=== PATIENT | female | born 1935 | race Caucasian/White ===

== ENCOUNTER 2016-12-06 08:04 | Day surgery (SDC) | payer MEDICARE, OTHER ==
--- NOTE | ~2016-12-06 | EGD ---
EGD REPORT [facility] [address] [address] NAME: BECCA HU : 39 [place] [facility] [place] [id number] AGE: 81 ADM/REG DATE : 12/06/16 MR#: [id number] REPORT SERV DATE: 12/06/16 DICTATED BY: MORGAN SPENCE III DATE: 12/06/16 REPORT STATUS : Draft [facility]ANSCRIBED BY: [facility] DATE: 12/06/16 [facility] Patient Name: Becca Hu Date of : 1935 Attending MD: MORGAN SPENCE III, MD Procedure Date No Time: 12/06/2016 Procedure: Colonoscopy Indications: Abnormal CT of the GI tract, Follow-up of diverticulitis Referring MD: Carole HAYDEN Medicines: Propofol per Anesthesia Complications: No immediate complications. Procedure: Pre-Anesthesia Assessment: - ASA Grade Assessment: III - A patient with severe systemic disease. After I obtained informed consent, the scope was passed under direct vision. Throughout the procedure, the patient's blood pressure, pulse, and oxygen saturations were monitored continuously. The [facility] [id number] was introduced through the anus and advanced to the terminal ileum. The colonoscopy was performed with ease. The patient tolerated the procedure well. The quality of the bowel preparation was good. Findings: Multiple small-mouthed diverticula were found in the entire colon. Two sessile polyps were found in the ascending colon. The polyps were 4 to 5 mm in size. These polyps were removed with a cold biopsy forceps. Resection and retrieval were complete. A sessile polyp was found in the transverse colon. The polyp was 5 mm in size. The polyp was removed with a cold biopsy forceps. Resection and retrieval were complete. The terminal ileum appeared normal. External and internal hemorrhoids were found during retroflexion. Impression: - Diverticulosis in the entire examined colon. - Two 4 to 5 mm polyps in the ascending colon. Resected and retrieved. - One 5 mm polyp in the transverse colon. Resected and retrieved. - The examined portion of the ileum was normal. - External and internal hemorrhoids. Recommendation: - Patient has a contact number available for emergencies. The signs and symptoms of potential delayed complications were discussed with the patient. Return to EGD REPORT [address] [address] NAME: BECCA HU : 39 [place] [facility] [place] [id number] AGE: 81 ADM/REG DATE : 12/06/16 MR#: [id number] REPORT SERV DATE: 12/06/16 DICTATED BY: MORGAN SPENCE III DATE: 12/06/16 REPORT STATUS : Draft TRANSCRIBED BY: [employer] DATE: 12/06/16 normal activities tomorrow. Written discharge instructions were provided to the patient. - Discharge patient to home. - High fiber diet indefinitely. - Await pathology results. - Continue present medications. Procedure Code(s): --- Professional --- 94800, Colonoscopy, flexible, proximal to splenic flexure; with biopsy, single or multiple Diagnosis Code(s): --- Professional --- K64.8, Other hemorrhoids K57.30, Diverticulosis of large intestine without perforation or abscess without bleeding D12.3, Benign neoplasm of transverse colon D12.2, Benign neoplasm of ascending colon R93.3, Abnormal findings on diagnostic imaging of other parts of digestive tract K57.32, Diverticulitis of large intestine without perforation or abscess without bleeding CPT copyright 2013 [employer]. All rights reserved. The codes documented in this report are preliminary and upon transport aircrewman review may be revised to meet current compliance requirements. MORGAN SPENCE III, MD 12/06/2016 10:13 AM This report has been signed electronically. Number of Addenda: 0 Note Initiated On: 12/06/2016 9:42 AM Scope Withdrawal Time 0 hours 12 minutes 7 seconds [id number] [id number]
[~2016-12-06 08:04] MED LIST: ASA5GR PO; ASAB PO; CORICIDI1 PO; DIOVAN HC1 PO; FLAG500TAB PO; K500 PO; LIDOCAINE PATCH T; LORTAB10 PO; LYRICA75 PO; NICODERM PATCH T; NORCO1 TA1 PO; PRILO PO; PROTONIX PO; TRAZ50 PO; [UNRECOGNIZED DRUG - REMARK] PO
== END 2016-12-06 23:59 | disposition home or self-care (01) ==
LOC: DMU 08:04
PROVIDERS: Internal Medicine Gastroenterology
PROC: 0DBL8ZZ Excision of Transverse Colon, Via Natural or Artificial Opening Endoscopic (ICD-10-PCS; 2016-12-06)
PROC: 0DBK8ZZ Excision of Ascending Colon, Via Natural or Artificial Opening Endoscopic (ICD-10-PCS; principal; 2016-12-06 09:30)
DX: D12.2 Benign neoplasm of ascending colon (principal); D12.3 Benign neoplasm of transverse colon; K57.30 Diverticulosis of large intestine without perforation or abscess without bleeding; K64.4 Residual hemorrhoidal skin tags; K64.8 Other hemorrhoids; K21.9 Gastro-esophageal reflux disease without esophagitis; G25.81 Restless legs syndrome; I10 Essential (primary) hypertension; I73.9 Peripheral vascular disease, unspecified; G47.33 Obstructive sleep apnea (adult) (pediatric); M19.90 Unspecified osteoarthritis, unspecified site; H91.90 Unspecified hearing loss, unspecified ear; J40 Bronchitis, not specified as acute or chronic; Z88.1 Allergy status to other antibiotic agents; Z79.82 Long term (current) use of aspirin; Z79.899 Other long term (current) drug therapy; Z87.891 Personal history of nicotine dependence; Z86.73 Personal history of transient ischemic attack (TIA), and cerebral infarction without residual deficits; Z96.1 Presence of intraocular lens; Z98.41 Cataract extraction status, right eye; Z98.42 Cataract extraction status, left eye; Z96.643 Presence of artificial hip joint, bilateral; Z90.710 Acquired absence of both cervix and uterus; Z95.1 Presence of aortocoronary bypass graft; Z98.890 Other specified postprocedural states
CPT/HCPCS: 88305